=== PATIENT | female | born 1980 ===

== ENCOUNTER 2020-06-29 17:35 | Outpatient (REF) | payer MEDICAID, SELFPAY ==
[2020-07-02 16:28] LABS: SARS-CoV-2 RNA Undetected (Undetected); SARS-CoV-2 Specimen Source Nasopharynx
== END 2020-06-29 17:55 ==
LOC: NCHCN 17:35
PROVIDERS: PCP Nurse Practitioner Family; Visit Provider Family Medicine
DX: Z20.828 Contact with and (suspected) exposure to other viral communicable diseases (principal)
CPT/HCPCS: U0003

== ENCOUNTER 2021-08-23 14:09 | Outpatient (REF) | payer MEDICAID, SELFPAY | END 2021-08-23 14:10 | disposition home or self-care (01) | LOC: NCHCN 14:09 | PROVIDERS: PCP Nurse Practitioner Family; Visit Provider Nurse Practitioner Family | DX: R30.0 Dysuria (principal) | CPT/HCPCS: 87086; 87480; 87510; 87660 ==

== ENCOUNTER 2022-08-12 15:30 | Outpatient (REF) | payer MEDICAID, SELFPAY ==
--- NOTE | 2022-08-12 13:30 | PAPFT_PTH ---
PATIENT: Princess Yousif LOC: [facility]#:[id number] AGE/SX: 41/F ROOM: RE08/12/[address]: Rylie Vargas : 1980 BED: DIS: 08/12/2022 SPEC #: [id number] RECD: 08/13/22 12:58 STATUS: [place] REQ #: [id number] NICKIE: 08/12/22 13:[address]: Rylie Vargas [facility]PT[facility] Cytology RECD BY: Magda Ramírez ENTERED: 08/13/22 12:59 SP TYPE: PAPFT OTHR DR: Jazmín Vargas Tissues: 1 - CX/ENDOCX FOR PAP SMEARS Procedures: PAP THIN PREP/[facility] Screening HPV DNA PROBE Comments: [id number]
== END 2022-08-12 15:31 | disposition home or self-care (01) ==
LOC: NCHCN 15:30
PROVIDERS: PCP Nurse Practitioner Family; Visit Provider Family Medicine
DX: Z12.4 Encounter for screening for malignant neoplasm of cervix (principal); Z11.51 Encounter for screening for human papillomavirus (HPV)
CPT/HCPCS: 88142; 87624